=== PATIENT | male | born 2000 | race Caucasian/White ===

== ENCOUNTER 2023-05-31 | Observation (INO) | payer OTHER | END 2023-06-02 12:12 | disposition home or self-care (01) | PROVIDERS: ADMIT Family Medicine | DX: R07.9 Chest pain, unspecified (principal); R19.7 Diarrhea, unspecified; E78.5 Hyperlipidemia, unspecified; E66.01 Morbid (severe) obesity due to excess calories; R79.89 Other specified abnormal findings of blood chemistry; Z68.42 Body mass index [BMI] 45.0-49.9, adult; Z79.82 Long term (current) use of aspirin; Z79.899 Other long term (current) drug therapy ==

== ENCOUNTER 2023-10-08 21:48 | Emergency (ER) | payer OTHER | END 2023-10-09 00:57 | disposition home or self-care (01) | LOC: CSHERS 21:48 | DX: M79.605 Pain in left leg (principal) | CPT/HCPCS: 99283 ==

== ENCOUNTER 2024-03-07 21:24 | Emergency (ER) | payer OTHER ==
[2024-03-07] MEDS ORDERED: Ondansetron PF 4 MG/2 ML Vial ONE (22:39)
[2024-03-07] MEDS ORDERED: Morphine 4 MG/ML VIAL ONE (22:39)
[2024-03-07 22:44] LABS: Bilirubin Neg (Negative); Blood, Urine 25 (Negative); Clarity Clear (Clear); Glucose, Urine (Dipstick) Normal (Negative); Ketone, Urine 150 mg/dL (Negative); Leukocyte Negative (Negative); Nitrite Negative (Negative); Protein, Urine (Dipstick) 15 mg/dl (Neg-Trace); Specific Gravity, Urine 1.025 (1.005-1.030); Urobilinogen Normal mg/dL (Less than 2)
[2024-03-07] MEDS ORDERED: Ketorolac Tromethamine 30 MG (1 mL) VIAL ONE (22:47)
[2024-03-07 23:01] LABS: Bacteria/HPF Rare-Few HPF (None Seen); CAUTI Indications for Culture Pelvic or flank pain; Mucous/LPF 1+ LPF (<2+); RBC/HPF 0-3 HPF (0-3); Squamous Epithelial 0-3 HPF (0-3); WBC/HPF 0-3 HPF (0-3)
[2024-03-07 23:02] LABS: Urine Culture Reflex No No
[2024-03-07 23:16] LABS: ALT (SGPT) 23 U/L (8-55); AST (SGOT) 21 U/L (5-34); Albumin 4.4 g/dL (3.5-5.0); Alkaline Phosphatase 73 U/L (40-110); Anion Gap 19 mmol/L (10-20); BUN (Urea Nitrogen) 18 mg/dL (8.9-20.6); Bilirubin, Total 0.5 mg/dL (0.2-1.2); Calc. Creatinine Clearance 0 mL/min (70-130); Calcium 10.1 mg/dL (7.8-10.44); Carbon Dioxide 21 mmol/L (22-29); Chloride 100 mmol/L (98-107); Estimated GFR 115; Globulin 3.9 g/dL (2.4-3.5); Glucose 114 mg/dL (70-105); Potassium 3.7 mmol/L (3.5-5.1); Protein, Total 8.3 g/dL (6.0-8.3); Sodium 136 mmol/L (136-145)
[2024-03-07 23:21] LABS: #Basophils 0.05 10x3/uL (0.0-0.2); #Neutrophils 10.47 10x3/uL (1.5-8.4); %Basophils 0.3 % (0.0-2.0); %Lymphocytes 20.7 % (18.0-47.0); %Monocytes 7.9 % (0.0-10.0); %Neutrophils 68.8 % (40.0-75.0); Hematocrit 41.2 % (38.8-50.0); Hemoglobin 13.6 g/dL (13.5-17.5); Mean Corpuscular Hemoglobin 25.6 pg (27.0-33.0); Mean Corpuscular Volume 77.4 fL (81.2-95.1); Mean Platelet Volume 11.1 fL (7.4-10.4); Platelet Count 342 10x3/uL (150-450); RBC Distribution Width 13.3 % (11.5-14.5); Red Blood Cell (RBC) Count 5.32 10x6/uL (4.32-5.72); White Blood Cell (WBC) Count 15.2 10x3/uL (3.5-10.5)
== END 2024-03-08 01:00 | disposition home or self-care (01) ==
LOC: CSHERS 21:24
DX: N20.0 Calculus of kidney (principal)
CPT/HCPCS: 74176; 80053; 81001; 85025; 96361; 96374; 96375; J1885; J2272; J2405